=== PATIENT | male | born 1980 | race Caucasian/White ===

== ENCOUNTER 2017-07-28 15:38 | Emergency (ER) | payer OTHER ==
[~2017-07-28] VITALS: Ht 180.3 cm; Wt 79.5 kg
[~2017-07-28 15:38] MED LIST: AMOXICILLIN 50500 MG PO; AMOXICILLIN/CLA1 TA1 PO; MOTRIN 600600 MG/TAB PO; NO HOME MEDICATIONS; NORCO 325 MG-51 TAB PO; OXYCODONE HCL40 MG PO; OXYCODONE HCL5 MG PO; PERCOCET 325 MG1 TA2 PO; ULTRAM 50MG TAB50 MG PO; ZITHROMAX Z PA250 MG PO; ZOFRAN 4MG T4 MG/TAB PO
[2017-07-28 15:39] VITALS: BP 131/78; TEMP 98.1
[2017-07-28] MEDS ORDERED: AMOXICILLIN 8751 TAB PO (16:36)
[2017-07-28 16:43] VITALS: PULSE 58
== END 2017-07-28 16:43 | disposition home or self-care (01) ==
LOC: COL.ER 15:38
DX: S41.111A Laceration without foreign body of right upper arm, initial encounter (principal); W26.9XXA Contact with unspecified sharp object(s), initial encounter